=== PATIENT | male | born 1990 | race American Indian/Alaskan Native ===

== ENCOUNTER 2020-03-20 10:14 | Day surgery (SDC) | payer BC ==
[~2020-03-20 10:14] MED LIST: SODIUM CHLORIDE 0.9% 1000 ML 1,000 ML IV SCH
[2020-03-20] MEDS ORDERED: SODIUM CHLORIDE 0.9% 1000 ML 1,000 ML ONE (12:25)
[2020-03-20] MEDS ORDERED: LIDOCAINE MPF (2%) 20 MG/1 ML VIAL 5 ML ONE (12:30)
--- NOTE | 2020-03-20 12:40 | Anesthesia Day of Surgery ---
Anesthesia Day of Surgery - Day of Surgery Patient Examined: Yes Patient H&P Reviewed: Yes Patient is NPO: Yes
--- NOTE | 2020-03-20 12:40 | Anesthesia Consultation ---
Anesthesia Consult and Med Hx Date of service: 03/20/20 - Airway Anesthetic Teeth Evaluation: Good ROM Head & Neck: Adequate Mental/Hyoid Distance: Adequate Mallampati Class: Class II Intubation Access Assessment: Probably Good - Pulmonary Exam CTA: Yes - Cardiac Exam Cardiac Exam: RRR - Pre-Operative Health Status ASA Pre-Surgery Classification: ASA2 Proposed Anesthetic Plan: MAC - Pulmonary Hx Smoking: Yes Hx Respiratory Symptoms: No - Cardiovascular System Hx Hypertension: No - Central Nervous System CVA: No - Gastrointestinal Hx Gastroesophageal Reflux Disease: Yes - Endocrine Hx Renal Disease: No Hx Liver Disease: No Hx Insulin Dependent Diabetes: No Hx Non-Insulin Dependent Diabetes: No Hx Thyroid Disease: No - Other Systems Hx Obesity: No
[2020-03-20] MEDS ORDERED: propofoL 200 MG/20 ML VIAL IV ONE ×2 (14:01→14:02)
--- NOTE | 2020-03-20 14:25 | Procedure Note ---
Date of procedure: 03/20/20 Pre-op diagnosis: Dyspepsia Post-op diagnosis: other (Mild to Moderate,Distal Erosive Esophagitis/ Gastritis/ R/O Celiac Disease (No Peptic Ulcer disease noted)) Procedure: EGD with Biopsy Anesthesia: MAC Surgeon: JUDI LÓPEZ Estimated blood loss: minimal Pathology: list Specimen disposition: to lab Condition: stable Disposition: same day (Treat with PPI and Baclofen, encourage use of OYC Probiotic (as directed. Avoid aspirin and NSAID for 4 days; otherwise resume home medecation. Avoid alcohol and tobacco products and follow up in 1 to 2 weeks ([phone]).)
--- NOTE | 2020-03-20 15:02 | Operative Report ---
PROCEDURE: Esophagogastroduodenoscopy with biopsy. INDICATIONS: This is a 29-year-old otherwise healthy -[place] gentleman originally from [place] in the [facility] who has been having dyspeptic symptoms and nausea, vomiting. EGD was done to make sure there was not any significant upper GI pathology present. The procedure was done after getting informed consent with MAC anesthesia. Instrument was passed through the hypopharynx into the esophagus, which showed some mild to moderate distal erosive esophagitis. Stomach showed some gastritis. No additional pathology was noted on the retroverted view. There was no evidence of any peptic ulcer disease either in the straight or the retroverted view. The pylorus was patent. The duodenum in the first and second portion appeared normal. Biopsy was done from the second part to rule out for possible celiac disease. Additional biopsy was done from the gastric antrum, gastric body and angular incisura to rule out for H. pylori and atrophic gastritis and in addition biopsy was done from the distal esophagus to rule out for erosive esophagitis and to assess for the severity of the erosive esophagitis. ASSESSMENT: Dyspepsia, mild to moderate distal erosive esophagitis, gastritis, rule out celiac disease. No peptic ulcer disease noted. PLAN: Treat the patient with PPI and baclofen to be taken at bedtime. The patient will be encouraged to take probiotics [id number] medication and use it as directed, to avoid aspirin and aspirin-related products. Avoid smoking and alcohol products and to follow up in the office in 1-2 weeks' time. The procedure was done in the GI lab with assistance of the GI lab team, which included nurse RN, Sunshine Mack; margarito Cervantes and with assistance of anesthesia. JOB# [id number] MARILU/ISAMAR
[2020-03-20 15:36] VITALS: BP 108/71
--- NOTE | 2020-03-20 15:58 | Post Anesthesia Evaluation ---
- Post Anesthesia Evaluation Patient Participated: Yes Airway Patent: Yes Stable Respiratory Function: Yes Nausea/Vomiting: No Temp > 96.8F: Yes Pain Manageable: Yes Adequeate Hydration: Yes Anesthesia Complications: No
== END 2020-03-20 10:15 | disposition home or self-care (01) ==
LOC: GIO 10:14
DX: R13.10 Dysphagia, unspecified (principal); R11.2 Nausea with vomiting, unspecified; K21.0 Gastro-esophageal reflux disease with esophagitis; K29.50 Unspecified chronic gastritis without bleeding; B96.81 Helicobacter pylori [H. pylori] as the cause of diseases classified elsewhere; K31.89 Other diseases of stomach and duodenum; K27.9 Peptic ulcer, site unspecified, unspecified as acute or chronic, without hemorrhage or perforation; F17.210 Nicotine dependence, cigarettes, uncomplicated; Z79.899 Other long term (current) drug therapy
CPT/HCPCS: 43239; 88305; 88342; J2704; J7030

== ENCOUNTER 2020-04-16 06:36 | Emergency (ER) | payer BC ==
[2020-04-16 07:42] LABS: Basophils % (Auto) 0.4 % (0.0-1.8); Eosinophils % (Auto) 0.4 % (0.0-4.3); Hematocrit 46.7 % (35.5-45.6); Hemoglobin 16.1 gm/dl (11.8-15.2); Lymphocytes # (Auto) 1.2 K/mm3 (1.2-5.4); Lymphocytes % (Auto) 12.4 % (13.4-35.0); Mean Corpuscular HGB Conc 35 % (32-34); Mean Corpuscular Volume 93 fl (84-94); Monocytes # (Auto) 0.4 K/mm3 (0.0-0.8); Monocytes % (Auto) 3.9 % (0.0-7.3); Platelet Count 261 K/mm3 (140-440); Red Blood Count 5.03 M/mm3 (3.65-5.03); Red Cell Distribution Width 12.9 % (13.2-15.2)
[2020-04-16 07:52] LABS: Alanine Aminotransferase 8 units/L (7-56); Albumin 4.8 g/dL (3.9-5); BUN/Creatinine Ratio 8; Blood Urea Nitrogen 8 mg/dL (9-20); Calcium 9.9 mg/dL (8.4-10.2); Hemolysis Index 7
[2020-04-16] MEDS ORDERED: FAMOTIDINE 20 MG/2 ML INJ IV ONE (08:19)
[2020-04-16] MEDS ORDERED: LACTATED RINGERS 1,000 ML IV ONE (08:19)
[2020-04-16] MEDS ORDERED: METOCLOPRAMIDE 10 MG/2 ML INJ IV ONE (08:19)
[2020-04-16] MEDS ORDERED: SUCRALFATE 1 GM/10 ML ORAL LIQD PO ONE (08:19)
--- NOTE | 2020-04-16 08:21 | Emergency Department Report ---
ED General Adult HPI - General Chief complaint: Abdominal Pain Stated complaint: ABD PAIN PUI?: No Time Seen by Provider: 04/16/20 07:55 Source: patient, RN notes reviewed, old records reviewed Mode of arrival: Ambulatory Limitations: No Limitations - History of Present Illness Initial comments: The patient is a 29-year-old gentleman. He is not known to myself previously. Contrary to what is documented in triage, he did not have an exploratory laparotomy or laparoscopy, but rather, recently had an EGD performed at this [facility], which suggested peptic ulcer disease, and possible gastritis. He was discharged with Protonix and baclofen. He is a chronic cannabis user. He presents with acute on chronic intermittent diffuse abdominal cramping, nausea and vomiting. These episodes are intermittent, abdominal cramping is diffuse. He does not have significant relief with taking hot showers. Denies headache, neck pain, chest pain, testicular pain, irritative and obstructive urinary symptoms. He denies focal extremity weakness and or numbness. Symptoms do not have exacerbating or relieving factors that he is aware of. This particular episode has been going on for a few days -: Gradual, days(s), month(s), year(s) Location: abdomen Radiation: non-radiation Quality: aching Consistency: intermittent Improves with: none Worsens with: none - Related Data Previous Rx's Medication Instructions Recorded Last Taken Type Pantoprazole [Protonix] 40 mg PO QDAY 30 Days #30 tablet 03/20/20 Unknown Rx Acetaminophen [Non-Aspirin Extra 500 mg PO Q6HR PRN #30 tablet 04/16/20 Unknown Rx Strength] Sindy Root [Sindy] 250 mg PO QID PRN #30 capsule 04/16/20 Unknown Rx Metoclopramide [Reglan] 10 mg PO QID PRN #30 tablet 04/16/20 Unknown Rx diphenhydrAMINE [Benadryl] 50 mg PO Q8HR PRN #20 capsule 04/16/20 Unknown Rx Allergies Allergy/AdvReac Type Severity Reaction Status Date / Time No Known Allergies Allergy Unverified 03/18/20 12:52 ED Review of Systems ROS: Stated complaint: ABD PAIN Other details as noted in HPI Constitutional: malaise, weakness. denies: fever Eyes: denies: eye discharge ENT: denies: epistaxis Respiratory: denies: cough Cardiovascular: denies: chest pain Gastrointestinal: abdominal pain, nausea, vomiting. denies: hematemesis, melena, hematochezia Genitourinary: denies: dysuria, testicular pain Musculoskeletal: denies: back pain Neurological: weakness Psychiatric: anxiety Hematological/Lymphatic: denies: easy bleeding ED Past Medical Hx - Past Medical History Previous Medical History?: Yes Hx Hypertension: No Hx GERD: Yes Hx Liver Disease: No Hx Renal Disease: No - Surgical History Past Surgical History?: No - Social History Smoking Status: Never Smoker Substance Use Type: None - Medications Home Medications: Home Medications Medication Instructions Recorded Confirmed Last Taken Type Pantoprazole [Protonix] 40 mg PO QDAY 30 Days #30 tablet 03/20/20 Unknown Rx Acetaminophen [Non-Aspirin Extra 500 mg PO Q6HR PRN #30 tablet 04/16/20 Unknown Rx Strength] Sindy Root [Sindy] 250 mg PO QID PRN #30 capsule 04/16/20 Unknown Rx Metoclopramide [Reglan] 10 mg PO QID PRN #30 tablet 04/16/20 Unknown Rx diphenhydrAMINE [Benadryl] 50 mg PO Q8HR PRN #20 capsule 04/16/20 Unknown Rx ED Physical Exam - General Limitations: No Limitations General appearance: alert, anxious, in distress - Head Head exam: Present: atraumatic, normocephalic - Eye Eye exam: Present: normal appearance, EOMI. Absent: nystagmus - ENT ENT exam: Present: normal exam, normal orophraynx, mucous membranes moist, normal external ear exam - Neck Neck exam: Present: normal inspection, full ROM. Absent: tenderness, meningismus - Respiratory Respiratory exam: Present: normal lung sounds bilaterally. Absent: respiratory distress - Cardiovascular Cardiovascular Exam: Present: regular rate, normal rhythm, normal heart sounds. Absent: bradycardia, tachycardia, irregular rhythm, systolic murmur, diastolic murmur, rubs, gallop - GI/Abdominal GI/Abdominal exam: Present: soft, normal bowel sounds. Absent: distended, tenderness, guarding, rebound, rigid - Rectal Rectal exam: Present: deferred - Extremities Exam Extremities exam: Present: normal inspection, full ROM, other (2+ pulses noted in the bilateral upper and lower extremities. There is no palpable cord. negative Homans sign. Muscular compartments are soft. The pelvis is stable.). Absent: pedal edema, calf tenderness - Back Exam Back exam: Present: normal inspection, full ROM. Absent: tenderness, CVA tenderness (R), CVA tenderness (L), paraspinal tenderness, vertebral tenderness - Neurological Exam Neurological exam: Present: alert, other (No facial droop. Tongue midline. Extraocular movements intact bilaterally. Facial sensation intact to light touch in V1, V2, V3 distribution bilaterally. 5 and a 5 strength in 4 extremities. Sensation intact to light touch in 4 extremities.). Absent: motor sensory deficit - Psychiatric Psychiatric exam: Present: anxious - Skin Skin exam: Present: warm, dry, intact, normal color. Absent: rash ED Course Vital Signs 04/16/20 04/16/20 04/16/20 06:48 08:30 08:46 Temperature 99.7 F H Pulse Rate 77 60 Respiratory 18 13 Rate Blood Pressure 131/86 147/94 Blood Pressure [Left] O2 Sat by Pulse 98 99 99 Oximetry 04/16/20 04/16/20 04/16/20 09:00 09:16 09:30 Temperature Pulse Rate 65 59 L 65 Respiratory 11 L 7 L 17 Rate Blood Pressure 147/94 147/94 147/94 Blood Pressure [Left] O2 Sat by Pulse 98 96 98 Oximetry 04/16/20 04/16/20 04/16/20 10:02 10:16 10:23 Temperature Pulse Rate 90 85 Respiratory 23 20 Rate Blood Pressure 147/94 147/94 Blood Pressure 147/94 [Left] O2 Sat by Pulse 97 94 96 Oximetry 04/16/20 10:30 Temperature Pulse Rate 89 Respiratory 19 Rate Blood Pressure 147/94 Blood Pressure [Left] O2 Sat by Pulse 96 Oximetry - Reevaluation(s) Reevaluation #1: 04/16/20 08:24 Differential diagnosis, including but not limited to: Cyclic vomiting syndrome, cannabinoid hyperemesis syndrome, hiatal hernia, GERD, gastritis, esophagitis, celiac disease Assessment and plan: 29-year-old gentleman with intermittent cyclic vomiting syndrome, suspect cyclic vomiting syndrome versus cannabinoid hyperemesis syndrome. Recent endoscopy is reviewed and appreciated. Patient is afebrile with reassuring vital signs, with a soft benign abdomen, without rebound, guarding or peritoneal signs during distracted examination. Leading diagnosis is most likely cannabinoid hyperemesis syndrome versus cyclic vomiting syndrome. We will treat his symptoms, initiate fluid therapy, and obtain EKG. If no relief with conservative therapy, and EKG unremarkable, will initiate therapy with haloperidol. No active vomiting at this time, given soft benign abdomen, cyclic and recurrent nature of symptoms, do not see indication for advanced CT imaging at this time. Patient counseled extensively, for 7 minutes to discontinue cannabis cons umption. Reevaluation #2: 04/16/20 09:42 Patient still vomiting. Haloperidol, Benadryl ordered. CT scan abdomen pelvis ordered. Reevaluation #3: 04/16/20 11:02 No active vomiting at this time. Patient resting comfortably in his stretcher, and in no acute distress. Belly soft on repeat examination. CT scan of the abdomen pelvis negative for acute pathology. This is most likely cannabinoid hyperemesis syndrome. He can follow-up with his outpatient ceo and founder ED Medical Decision Making - Lab Data Result diagrams: 04/16/20 07:04 04/16/20 07:04 Vital Signs 04/16/20 06:48 Temperature 99.7 F H Pulse Rate 77 Respiratory 18 Rate Blood Pressure 131/86 O2 Sat by Pulse 98 Oximetry - EKG Data -: EKG Interpreted by Nm EKG shows normal: sinus rhythm Rate: normal - EKG Data When compared to previous EKG there are: previous EKG unavailable 04/16/20 08:48 Sinus rhythm, 61 bpm, left axis deviation, intervals within normal limits, high left ventricular voltage, early repolarization. Abnormal EKG. Not a STEMI. - Radiology Data Radiology results: report reviewed, image reviewed Critical care attestation.: If time is entered above; I have spent that time in minutes in the direct care of this critically ill patient, excluding procedure time. ED Disposition Clinical Impression: Acute abdominal pain, Nausea and vomiting, Cannabis dependence Disposition: DC-01 TO HOME OR SELFCARE Is pt being admited?: No Does the pt Need Aspirin: No Condition: Stable Instructions: Cannabis Abuse (ED) Additional Instructions: Do not take metformin medication for the next 2 days, if patient takes this medication. Patient may continue Protonix/pantoprazole, and may discontinue baclofen. Avoid consumption of Motrin, ibuprofen, Naprosyn, Aleve, heavy and spicy foods. Avoid consumption of alcohol. Patient most likely has cannabinoid hyperemesis syndrome. Treatment is to discontinue cannabis/marijuana consumption and exposure. It may take a few weeks to improve. Take the prescribed medications as needed and directed. Patient may also experience relief by taking a hot bath and hot shower, or, by purchasing [id number] hot sauce from any food and/or supermarket, such as Tabasco, and applying it to the anterior abdominal wall, and codeine liberally as needed for pain. Please follow-up with your ceo and founder within the next 2 weeks. Please return to the emergency room right away with new pain, worsening pain, migration of pain, projectile vomiting, change in mental status, confusion, inability to tolerate liquid feeds, new, worsened or different symptoms not present on the initial emergency room evaluation. Referrals: JUDI LÓPEZ MD [Staff Physician] - 7-10 days
[2020-04-16] MEDS ORDERED: HALOPERIDOL LACTATE 5 MG/1 ML INJ IM STA (09:41)
[2020-04-16] MEDS ORDERED: diphenhydrAMINE 50 MG/ML VIAL IV ONE (09:41)
--- NOTE | 2020-04-16 10:34 | Cat Scan Report ---
CT ABDOMEN AND PELVIS WITH CONTRAST INDICATION / CLINICAL INFORMATION: acute abd pain n/v. TECHNIQUE: Axial CT images were obtained through the abdomen and pelvis after IV contrast. All CT scans at this location are performed using CT dose reduction for ALARA by means of automated exposure control. COMPARISON: None available. FINDINGS: LOWER CHEST: No significant abnormality. LIVER: No significant abnormality. Focal fatty infiltration near the falciform ligament. GALLBLADDER: No significant abnormality. BILE DUCTS: No significant abnormality. PANCREAS: No significant abnormality. SPLEEN: No significant abnormality. ADRENALS: No significant abnormality. RIGHT KIDNEY / URETER: No significant abnormality. LEFT KIDNEY / URETER: No significant abnormality. STOMACH / SMALL BOWEL: No significant abnormality. COLON: No significant abnormality. APPENDIX: No significant abnormality. PERITONEUM: No free fluid. No free air. No fluid collection. LYMPH NODES: No significant adenopathy. AORTA / ARTERIES: No significant abnormality. IVC / VEINS: No significant abnormality. URINARY BLADDER: No significant abnormality. REPRODUCTIVE ORGANS: No significant abnormality. ADDITIONAL FINDINGS: None. SKELETAL SYSTEM: There is deformity of the left superior and inferior pubic rami likely from remote t rauma. IMPRESSION: 1. No acute abdominopelvic abnormality. 2. Deformity of the left bony pelvis is likely related to remote trauma. Signer Name: Michael Horn MD Signed: 04/16/2020 10:30 AM Workstation Name: [id number]
[2020-04-16 13:47] VITALS: BP 99/67
== END 2020-04-16 13:54 | disposition home or self-care (01) ==
LOC: ED 06:36
DX: R10.84 Generalized abdominal pain (principal); R11.2 Nausea with vomiting, unspecified; F12.229 Cannabis dependence with intoxication, unspecified
CPT/HCPCS: 36415; 74177; 80053; 82550; 83735; 85025; 93005; 96361; 96372; 96374; 96375; 99284; J1200; J1630; J2765; J7120; Q9967

== ENCOUNTER 2021-08-27 19:47 | Emergency (ER) | payer BC ==
[2021-08-27 19:58] VITALS: BP 144/99
[2021-08-27 20:37] LABS: Hematocrit 48.6 % (35.5-45.6); Hemoglobin 16.7 gm/dl (11.8-15.2); Mean Corpuscular HGB Conc 34 % (32-34); Mean Corpuscular Volume 91 fl (84-94); Platelet Count 277 K/mm3 (140-440); Red Blood Count 5.33 M/mm3 (3.65-5.03); Red Cell Distribution Width 12.1 % (13.2-15.2)
[2021-08-27 20:58] LABS: Alanine Aminotransferase 6 units/L (7-56); BUN/Creatinine Ratio 12; Blood Urea Nitrogen 13 mg/dL (9-20); Calcium 10.4 mg/dL (8.4-10.2); Hemolysis Index 10
[2021-08-27 21:23] LABS: Bilirubin,Urine NEG (Negative); Blood,Urine NEG (Negative); Color,Urine Amber (Yellow); Mucus,Urine 2+ /HPF
[2021-08-27 22:01] LABS: RBC Morphology Normal; Total Cells Counted 100
[2021-08-27] MEDS ORDERED: METOCLOPRAMIDE 10 MG/2 ML INJ IV ONE (23:01)
[2021-08-27] MEDS ORDERED: MORPHINE 4 MG/1 ML INJ IV ONE (23:01)
[2021-08-27] MEDS ORDERED: diphenhydrAMINE 50 MG/ML VIAL IV ONE (23:01)
[2021-08-27] MEDS ORDERED: FAMOTIDINE 20 MG/2 ML INJ IV ONE (23:01)
[2021-08-27] MEDS ORDERED: SODIUM CHLORIDE 0.9% 1000 ML 1,000 ML IV ONE (23:01)
--- NOTE | 2021-08-28 01:22 | Cat Scan Report ---
CT ABDOMEN AND PELVIS WITH CONTRAST INDICATION / CLINICAL INFORMATION: abdominal pain, N/V. TECHNIQUE: Axial CT images were obtained through the abdomen and pelvis after 100 cc of Omnipaque [address] scans at this location are performed using CT dose reduction for ALARA by means of automated exposure control. COMPARISON: 04/16/2020 FINDINGS: LOWER CHEST: No significant abnormality. AORTA / ARTERIES: No significant abnormality. IVC / VEINS: No significant abnormality. LYMPH NODES: No significant adenopathy. COLON: No significant abnormality. APPENDIX: No significant abnormality. STOMACH / SMALL BOWEL: No significant abnormality. PERITONEUM: No free fluid. No free air. No fluid collection. LIVER: Redemonstrated focal fatty infiltration, otherwise no significant lesion within the liver. GALLBLADDER: No significant abnormality. BILE DUCTS: No significant abnormality. PANCREAS: No significant abnormality. SPLEEN: No significant abnormality. ADRENALS: No significant abnormality. RIGHT KIDNEY / URETER: No significant abnormality. LEFT KIDNEY / URETER: No significant abnormality. URINARY BLADDER: No significant abnormality. REPRODUCTIVE ORGANS: No significant abnormality. SKELETAL SYSTEM: Unchanged deformity of the left superior-inferior pubic rami. ADDITIONAL FINDINGS: None. IMPRESSION: 1. No acute intra-abdominal or intrapelvic pathology. Signer Name: Familia Burroughs DO Signed: 08/28/2021 1:18 AM Workstation Name: [id number]
--- NOTE | 2021-08-28 03:03 | Emergency Department Report ---
ED N/V/D HPI - General Chief complaint: Nausea/Vomiting/Diarrhea Stated complaint: GERD Source: patient Mode of arrival: Ambulatory Limitations: No Limitations - History of Present Illness Initial comments: Patient is a 30-year-old -[place] male with a history of chronic gastroenteritis who presented to the ED with complaint of acute onset persistent intractable nausea and vomiting for the last 2 weeks. Patient also complains of diffuse abdominal pain. Patient states that he has not been able to keep anything down including fluids for the last 1 week because of intractable nausea and vomiting and diffuse abdominal pain. Patient admits to smoking marijuana regularly the last time which was 2 weeks ago. Patient denies fever, chills, diarrhea, dizziness, chest pain, shortness of breath, sore throat, cough, headache, lightheadedness, nasal and sinus congestion, hematemesis, hematochezia, change in vision or back pain, dysuria, urinary frequency and urgency and testicular pain. MD complaint: nausea, vomiting, abdominal pain -: Sudden, week(s) (2) Description of Vomiting: food contents, watery, bilious Associated Abdominal Pain: Yes (Diffuse) Location: diffuse Radiation: none Severity: severe Pain Scale: 7 Quality: cramping, dull Consistency: intermittent Improves with: none Worsens with: eating, vomiting Context: possible food poisoning, other (Chronic cannabis cyclic vomiting) Associated Symptoms: denies other symptoms, loss of appetite, malaise, nausea/vomiting. denies: myalgias, chest pain, cough, diaphoresis, fever/chills, headaches, rash, dysuria, shortness of breath, syncope, weakness - Related Data Previous Rx's Medication Instructions Recorded Last Taken Type Pantoprazole [Protonix] 40 mg PO QDAY 30 Days #30 tablet 03/20/20 Unknown Rx Acetaminophen [Non-Aspirin Extra 500 mg PO Q6HR PRN #30 tablet 04/16/20 Unknown Rx Strength] Sindy Root [Sindy] 250 mg PO QID PRN #30 capsule 04/16/20 Unknown Rx Metoclopramide [Reglan] 10 mg PO QID PRN #30 tablet 04/16/20 Unknown Rx diphenhydrAMINE [Benadryl] 50 mg PO Q8HR PRN #20 capsule 04/16/20 Unknown Rx Dicyclomine [Bentyl] 20 mg PO Q6H PRN #30 tablet 08/28/21 Unknown Rx Famotidine [Pepcid] 20 mg PO BID #60 tablet 08/28/21 Unknown Rx Ondansetron [Zofran Odt] 4 mg PO Q6HR PRN #20 tab.rapdis 08/28/21 Unknown Rx Promethazine HCl [Phenergan SUPPOS] 25 mg RC Q6H PRN #20 supp.rect 08/28/21 Unknown Rx Allergies Allergy/AdvReac Type Severity Reaction Status Date / Time No Known Allergies Allergy Unverified 03/18/20 12:52 ED Review of Systems ROS: Stated complaint: GERD Other details as noted in HPI Constitutional: denies: chills, fever Eyes: denies: eye pain, eye discharge, vision change ENT: denies: ear pain, throat pain Respiratory: denies: cough, shortness of breath, wheezing Cardiovascular: denies: chest pain, palpitations Endocrine: no symptoms reported Gastrointestinal: abdominal pain, nausea, vomiting. denies: diarrhea Genitourinary: denies: urgency, dysuria Musculoskeletal: denies: back pain, joint swelling, arthralgia Skin: denies: rash, lesions Neurological: denies: headache, weakness, paresthesias Psychiatric: denies: anxiety, depression Hematological/Lymphatic: denies: easy bleeding, easy bruising ED Past Medical Hx - Past Medical History Previous Medical History?: Yes Hx Hypertension: No Hx GERD: Yes Hx Liver Disease: No Hx Renal Disease: No - Surgical History Past Surgical History?: No - Social History Smoking Status: Never Smoker Substance Use Type: None - Medications Home Medications: Home Medications Medication Instructions Recorded Confirmed Last Taken Type Pantoprazole [Protonix] 40 mg PO QDAY 30 Days #30 tablet 03/20/20 Unknown Rx Acetaminophen [Non-Aspirin Extra 500 mg PO Q6HR PRN #30 tablet 04/16/20 Unknown Rx Strength] Sindy Root [Sindy] 250 mg PO QID PRN #30 capsule 04/16/20 Unknown Rx Metoclopramide [Reglan] 10 mg PO QID PRN #30 tablet 04/16/20 Unknown Rx diphenhydrAMINE [Benadryl] 50 mg PO Q8HR PRN #20 capsule 04/16/20 Unknown Rx Dicyclomine [Bentyl] 20 mg PO Q6H PRN #30 tablet 08/28/21 Unknown Rx Famotidine [Pepcid] 20 mg PO BID #60 tablet 08/28/21 Unknown Rx Ondansetron [Zofran Odt] 4 mg PO Q6HR PRN #20 tab.rapdis 08/28/21 Unknown Rx Promethazine HCl [Phenergan SUPPOS] 25 mg RC Q6H PRN #20 supp.rect 08/28/21 Unknown Rx ED Physical Exam - General Limitations: No Limitations General appearance: alert, in no apparent distress - Head Head exam: Present: atraumatic, normocephalic, normal inspection - Eye Eye exam: Present: normal appearance, PERRL, EOMI Pupils: Present: normal accommodation - ENT ENT exam: Present: normal exam, normal orophraynx, mucous membranes moist, TM's normal bilaterally, normal external ear exam - Neck Neck exam: Present: normal inspection, full ROM. Absent: tenderness - Respiratory Respiratory exam: Present: normal lung sounds bilaterally. Absent: respiratory distress, wheezes, rales, rhonchi, chest wall tenderness, accessory muscle use, decreased breath sounds - Cardiovascular Cardiovascular Exam: Present: normal rhythm, tachycardia, normal heart sounds. Absent: systolic murmur, diastolic murmur, rubs, gallop - GI/Abdominal GI/Abdominal exam: Present: soft, tenderness (Palpable mild diffuse abdominal tenderness), normal bowel sounds. Absent: guarding, rebound - Extremities Exam Extremities exam: Present: normal inspection, full ROM, normal capillary refill - Back Exam Back exam: Present: normal inspection, full ROM. Absent: tenderness, CVA tenderness (R), CVA tenderness (L), muscle spasm, paraspinal tenderness, vertebral tenderness - Neurological Exam Neurological exam: Present: alert, oriented X3, CN II-XII intact, normal gait, reflexes normal - Psychiatric Psychiatric exam: Present: normal affect, normal mood, anxious - Skin Skin exam: Present: warm, dry, intact, normal color. Absent: rash ED Course Vital Signs 08/27/21 19:57 Temperature 98.7 F Pulse Rate 105 H Respiratory 20 Rate Blood Pressure 144/99 [Right] O2 Sat by Pulse 99 Oximetry ED Medical Decision Making - Lab Data Result diagrams: 08/27/21 20:25 08/27/21 20:25 - Radiology Data Radiology results: report reviewed, image reviewed [facility] [address] [place] [address] Cat Scan Report Signed Patient: SARAHY WYNN MR#: [id number] : 1990 Acct:[id number] Age/Sex: 30 / M ADM Date: 08/27/21 Loc: ED Attending Dr: Ordering Physician: MONISHA CISNEROS Date of Service: 08/27/21 Procedure(s): CT abdomen pelvis w con Accession Number(s): [id number] cc: MONISHA CISNEROS CT ABDOMEN AND PELVIS WITH CONTRAST INDICATION / CLINICAL INFORMATION: abdominal pain, N/V. TECHNIQUE: Axial CT images were obtained through the abdomen and pelvis after 100 cc of Omnipaque [address] scans at this location are performed using CT dose reduction for ALARA by means of automated exposure control. COMPARISON: 04/16/2020 FINDINGS: LOWER CHEST: No significant abnormality. AORTA / ARTERIES: No significant abnormality. IVC / VEINS: No significant abnormality. LYMPH NODES: No significant adenopathy. COLON: No significant abnormality. APPENDIX: No significant abnormality. STOMACH / SMALL BOWEL: No significant abnormality. PERITONEUM: No free fluid. No free air. No fluid collection. LIVER: Redemonstrated focal fatty infiltration, otherwise no significant lesion within the liver. GALLBLADDER: No significant abnormality. BILE DUCTS: No significant abnormality. PANCREAS: No significant abnormality. SPLEEN: No significant abnormality. ADRENALS: No significant abnormality. RIGHT KIDNEY / URETER: No significant abnormality. LEFT KIDNEY / URETER: No significant abnormality. URINARY BLADDER: No significant abnormality. REPRODUCTIVE ORGANS: No significant abnormality. SKELETAL SYSTEM: Unchanged deformity of the left superior-inferior pubic rami. ADDITIONAL FINDINGS: None. IMPRESSION: 1. No acute intra-abdominal or intrapelvic pathology. Signer Name: Familia Chambers DO Signed: 08/28/2021 1:18 AM Workstation Name: [id number] Transcribed By: PADILLA Dictated By: FAMILIA CHAMBERS DO Electronically Authenticated By: FAMILIA CHAMBESR DO Signed Date/Time: 08/28/21117 DD/ 2 TD/TT: Print - Medical Decision Making This is a 30-year-old -[place] male with a history of chronic gastroenteritis who presented to the ED with complaint of acute onset persistent intractable nausea and vomiting for the last 2 weeks. Patient also complains of diffuse abdominal pain. Patient states that he has not been able to keep anything down including fluids for the last 1 week because of intractable nausea and vomiting and diffuse abdominal pain. Patient admits to smoking marijuana regularly the last time which was 2 weeks ago. In the ED, patient is alert and oriented x3 and is not in any distress. Patient was treated in the ED with antiemetics, antacids, pain medications and normal saline 1 L IV bolus x1. Lab test results were reviewed and showed acute leukocytosis of 13,700. The rest of the lab test results were nonactionable. Abdomen pelvis CT scan with contrast showed no acute abnormalities. On reevaluation, patient's nausea and vomiting resolved as well as pain. Patient passed oral fluid challenge in the ED. Patient was therefore discharged home on antiemetics, antispasmodics, and antacids. Patient was advised to maintain a clear liquid diet for 12 to 24 hours, patient was also advised to ensure that he does not smoke cannabis as this may be the cause of his cyclic vomiting syndrome. Patient was advised to follow-up with his primary care physician in 5 to 7 days for reevaluation or return to the ED immediately if symptoms get worse. - Differential Diagnosis Gastroenteritis; GERD; cyclic vomiting; dehydration; cannabis hyperemesis Critical care attestation.: If time is entered above; I have spent that time in minutes in the direct care of this critically ill patient, excluding procedure time. ED Disposition Clinical Impression: Intractable cyclical vomiting syndrome, Gastroenteritis, Cannabis hyperemesis syndrome concurrent with and due to cannabis abuse GERD (gastroesophageal reflux disease) Qualifiers: Esophagitis presence: esophagitis presence not specified Qualified Code(s): K21.9 - Gastro-esophageal reflux disease without esophagitis Disposition: 01 HOME / SELF CARE / HOMELESS Is pt being admited?: No Does the pt Need Aspirin: No Condition: Stable Instructions: Viral Gastroenteritis, Adult, [id number], Nausea and Vomiting, Adult, [id number], Gastroesophageal Reflux Disease, Adult, [id number], Cannabinoid Hyperemesis Syndrome, Cyclic Vomiting Syndrome, Adult Additional Instructions: Maintain a clear liquid diet for 12 to 24 hours, take medication as needed for nausea and vomiting, acid reflux and pain. Follow-up with your primary care physician in 7 to 10 days for reevaluation. Ensure that you do not smoke marijuana as this may be the cause of your cyclic vomiting syndrome. Return to the ED immediately if symptoms get worse. Prescriptions: Dicyclomine [Bentyl] 20 mg PO Q6H PRN #30 tablet PRN Reason: Abdominal pain Famotidine [Pepcid] 20 mg PO BID #60 tablet Promethazine HCl [Phenergan SUPPOS] 25 mg RC Q6H PRN #20 supp.rect PRN Reason: Nausea And Vomiting Ondansetron [Zofran Odt] 4 mg PO Q6HR PRN #20 tab.rapdis PRN Reason: Nausea And Vomiting Referrals: BENJAMIN MACIAS MD [Staff Physician] - 3-5 Days Time of Disposition: 03:09 Print Language: EAST TIMOR[place]
== END 2021-08-28 04:00 | disposition home or self-care (01) ==
LOC: ED 19:47
DX: K52.9 Noninfective gastroenteritis and colitis, unspecified (principal); F12.188 Cannabis abuse with other cannabis-induced disorder; K21.9 Gastro-esophageal reflux disease without esophagitis
CPT/HCPCS: 36415; 74177; 80053; 81001; 85007; 85025; 96361; 96374; 96375; 99284; J1200; J2270; J2765; J3490; J7030; Q9967; Q0162

== ENCOUNTER 2021-08-28 18:14 | Emergency (ER) | payer BC ==
[2021-08-28] MEDS ORDERED: PANTOPRAZOLE 40 MG INJ IV ONE (18:45)
[2021-08-28] MEDS ORDERED: diphenhydrAMINE 50 MG/ML VIAL IV ONE (18:45)
[2021-08-28] MEDS ORDERED: METOCLOPRAMIDE 10 MG/2 ML INJ IV ONE (18:45)
[2021-08-28] MEDS ORDERED: SODIUM CHLORIDE 0.9% 1000 ML 1,000 ML IV ONE (18:45)
--- NOTE | 2021-08-28 19:17 | Emergency Department Report ---
ED General Adult HPI - General Chief complaint: Nausea/Vomiting/Diarrhea Stated complaint: n/v abd pain Time Seen by Provider: 08/28/21 18:38 Source: EMS Mode of arrival: Wheelchair Limitations: No Limitations - History of Present Illness Initial comments: Patient is a 30-year-old male presents emergency room complaints of nausea and vomiting that reoccurred a few hours ago. Patient states he has associated generalized abdominal soreness. Patient was evaluated in the emergency department and discharged earlier this morning and had a normal CT abdomen pelvis with IV contrast and reports that he was feeling much better but then his symptoms recurred several hours later. He states he was not able to hot die picker his prescriptions as it is a holiday and therefore the pharmacies are closed. Patient states that he has had similar issues over the last 10 years. He states he had a endoscopy by Dr. Jason and states he was diagnosed with gastritis. He reports he has an upcoming appointment with a new GI specialist in September 2021. He denies any fever, diarrhea, hematochezia, melena, hematemesis, urinary symptoms. He states he is able to have normal bowel movements. No allergies to medications. He endorses marijuana use. He states he was advised not to smoke marijuana, drink alcohol, or use tobacco by previous GI specialist. Severity scale (0 -10): 1 - Related Data Previous Rx's Medication Instructions Recorded Last Taken Type Pantoprazole [Protonix] 40 mg PO QDAY 30 Days #30 tablet 03/20/20 Unknown Rx Acetaminophen [Non-Aspirin Extra 500 mg PO Q6HR PRN #30 tablet 04/16/20 Unknown Rx Strength] Sindy Root [Sindy] 250 mg PO QID PRN #30 capsule 04/16/20 Unknown Rx Metoclopramide [Reglan] 10 mg PO QID PRN #30 tablet 04/16/20 Unknown Rx diphenhydrAMINE [Benadryl] 50 mg PO Q8HR PRN #20 capsule 04/16/20 Unknown Rx Dicyclomine [Bentyl] 20 mg PO Q6H PRN #30 tablet 08/28/21 Unknown Rx Famotidine [Pepcid] 20 mg PO BID #60 tablet 08/28/21 Unknown Rx Ondansetron [Zofran Odt] 4 mg PO Q6HR PRN #20 tab.rapdis 08/28/21 Unknown Rx Promethazine HCl [Phenergan SUPPOS] 25 mg RC Q6H PRN #20 supp.rect 08/28/21 Unknown Rx Allergies Allergy/AdvReac Type Severity Reaction Status Date / Time No Known Allergies Allergy Unverified 03/18/20 12:52 ED Review of Systems ROS: Stated complaint: n/v abd pain Other details as noted in HPI Comment: All other systems reviewed and negative ED Past Medical Hx - Past Medical History Hx Hypertension: No Hx GERD: Yes Hx Liver Disease: No Hx Renal Disease: No - Social History Smoking Status: Never Smoker Substance Use Type: None - Medications Home Medications: Home Medications Medication Instructions Recorded Confirmed Last Taken Type Pantoprazole [Protonix] 40 mg PO QDAY 30 Days #30 tablet 03/20/20 Unknown Rx Acetaminophen [Non-Aspirin Extra 500 mg PO Q6HR PRN #30 tablet 04/16/20 Unknown Rx Strength] Sindy Root [Sindy] 250 mg PO QID PRN #30 capsule 04/16/20 Unknown Rx Metoclopramide [Reglan] 10 mg PO QID PRN #30 tablet 04/16/20 Unknown Rx diphenhydrAMINE [Benadryl] 50 mg PO Q8HR PRN #20 capsule 04/16/20 Unknown Rx Dicyclomine [Bentyl] 20 mg PO Q6H PRN #30 tablet 08/28/21 Unknown Rx Famotidine [Pepcid] 20 mg PO BID #60 tablet 08/28/21 Unknown Rx Ondansetron [Zofran Odt] 4 mg PO Q6HR PRN #20 tab.rapdis 08/28/21 Unknown Rx Promethazine HCl [Phenergan SUPPOS] 25 mg RC Q6H PRN #20 supp.rect 08/28/21 Unknown Rx ED Physical Exam - General Limitations: No Limitations General appearance: alert, in no apparent distress - Head Head exam: Present: atraumatic, normocephalic - Eye Eye exam: Present: normal appearance - ENT ENT exam: Present: mucous membranes moist - Respiratory Respiratory exam: Present: normal lung sounds bilaterally. Absent: respiratory distress, wheezes, rales, rhonchi, stridor, chest wall tenderness, accessory muscle use, decreased breath sounds, prolonged expiratory - Cardiovascular Cardiovascular Exam: Present: regular rate, normal rhythm, normal heart sounds. Absent: systolic murmur, diastolic murmur, rubs, gallop - GI/Abdominal GI/Abdominal exam: Present: soft, normal bowel sounds. Absent: distended, tenderness, guarding, rebound, rigid - Neurological Exam Neurological exam: Present: alert, oriented X3 - Psychiatric Psychiatric exam: Present: normal affect, normal mood - Skin Skin exam: Present: warm, dry, intact ED Course Vital Signs 08/28/21 08/28/21 18:16 20:59 Temperature 98.7 F 99.2 F Pulse Rate 113 H 106 H Respiratory 18 20 Rate Blood Pressure 148/100 150/108 [Left] O2 Sat by Pulse 97 97 Oximetry ED Medical Decision Making - Lab Data Result diagrams: 08/28/21 19:05 08/28/21 19:05 Lab Results 08/28/21 08/28/21 Range/Units 19:05 19:05 WBC 10.5 (4.5-11.0) K/mm3 RBC 5.04 H (3.65-5.03) M/mm3 Hgb 15.6 H (11.8-15.2) gm/dl Hct 46.1 H (35.5-45.6) % MCV 92 (84-94) fl MCH 31 (28-32) pg MCHC 34 (32-34) % RDW 12.2 L (13.2-15.2) % Plt Count 241 (140-440) K/mm3 Lymph % (Auto) 6.7 L (13.4-35.0) % [place] % (Auto) 6.7 (0.0-7.3) % Eos % (Auto) 1.1 (0.0-4.3) % Baso % (Auto) 0.4 (0.0-1.8) % Lymph # (Auto) 0.7 L (1.2-5.4) K/mm3 [place] # (Auto) 0.7 (0.0-0.8) K/mm3 Eos # (Auto) 0.1 (0.0-0.4) K/mm3 Baso # (Auto) 0.0 (0.0-0.1) K/mm3 Seg Neutrophils % 85.1 H (40.0-70.0) % Seg Neutrophils # 8.9 H (1.8-7.7) K/mm3 Sodium 135 L (137-145) mmol/L Potassium 3.3 L (3.6-5.0) mmol/L Chloride 93.5 L (98-107) mmol/L Carbon Dioxide 23 (22-30) mmol/L Anion Gap 22 mmol/L BUN 8 L (9-20) mg/dL Creatinine 1.1 (0.8-1.3) mg/dL Estimated GFR > 60 ml/min BUN/Creatinine Ratio 7 % Glucose 111 H (75-100) mg/dL Calcium 9.3 (8.4-10.2) mg/dL Total Bilirubin 0.60 (0.1-1.2) mg/dL AST 12 (5-40) units/L ALT 6 L (7-56) units/L Alkaline Phosphatase 87 (35-129) units/L Total Protein 6.7 (6.3-8.2) g/dL Albumin 4.6 (3.9-5) g/dL Albumin/Globulin Ratio 2.2 % Lipase 33 (13-60) units/L Vital Signs 08/28/21 08/28/21 18:16 20:59 Temperature 98.7 F 99.2 F Pulse Rate 113 H 106 H Respiratory 18 20 Rate Blood Pressure 148/100 150/108 [Left] O2 Sat by Pulse 97 97 Oximetry - Medical Decision Making Patient is a 30-year-old male presents emergency room complaints of nausea and vomiting that reoccurred a few hours ago. Patient states he has associated generalized abdominal soreness. Patient was evaluated in the emergency department and discharged earlier this morning and had a normal CT abdomen pelvis with IV contrast and reports that he was feeling much better but then his symptoms recurred several hours later. He states he was not able to hot die picker his prescriptions as it is a holiday and therefore the pharmacies are closed. Patient states that he has had similar issues over the last 10 years. He states he had a endoscopy by Dr. Jason and states he was diagnosed with gastritis. He reports he has an upcoming appointment with a new GI specialist in September 2021. He denies any fever, diarrhea, hematochezia, melena, hematemesis, urinary symptoms. He states he is able to have normal bowel movements. No allergies to medications. He endorses marijuana use. He states he was advised not to smoke marijuana, drink alcohol, or use tobacco by previous GI specialist. No abdominal tenderness on exam, no guarding, no rebound, no rigidity, no peritoneal signs. Patient's white blood cell count has improved from previous and is now normal. Labs with mild dehydration and hypokalemia. Patient given 1 L IV fluids and K-Dur. Patient given medications in the emergency department with resolution of his symptoms. He was feeling much better and had no further episodes of vomiting. He was able to tolerate p.o. intake. Discussed the importance of GI follow-up and primary care follow-up. Discussed return precautions. Advised patient Please take medication as prescribed during your emergency room visit earlier. Increase your fluid intake. Eat a bland liquid diet so advance your diet as tolerated. Do not drink alcohol, smoke marijuana, smoke tobacco. Follow-up with a primary care doctor for follow-up with a GI doctor return emergency room any new or worse symptoms Critical care attestation.: If time is entered above; I have spent that time in minutes in the direct care of this critically ill patient, excluding procedure time. ED Disposition Clinical Impression: Abdominal cramping, Dehydration, Hypokalemia Nausea & vomiting Qualifiers: Vomiting type: unspecified Qualified Code(s): R11.2 - Nausea with vomiting, unspecified Disposition: HOME / SELF CARE / HOMELESS Is pt being admited?: No Does the pt Need Aspirin: No Condition: Stable Instructions: Nausea and Vomiting, Adult Additional Instructions: Please take medication as prescribed during your emergency room visit earlier. Increase your fluid intake. Eat a bland liquid diet so advance your diet as tolerated. Do not drink alcohol, smoke marijuana, smoke tobacco. Follow-up with a primary care doctor for follow-up with a GI doctor return emergency room any new or worse symptoms Referrals: PRIMARY CARE, [Primary Care Provider] - 3-5 Days your, GI doctor [Other] - 3-5 Days Time of Disposition: 20:17 Print Language: URDU
[2021-08-28 19:49] LABS: Basophils % (Auto) 0.4 % (0.0-1.8); Eosinophils # (Auto) 0.1 K/mm3 (0.0-0.4); Eosinophils % (Auto) 1.1 % (0.0-4.3); Hematocrit 46.1 % (35.5-45.6); Hemoglobin 15.6 gm/dl (11.8-15.2); Lymphocytes # (Auto) 0.7 K/mm3 (1.2-5.4); Lymphocytes % (Auto) 6.7 % (13.4-35.0); Mean Corpuscular HGB Conc 34 % (32-34); Mean Corpuscular Volume 92 fl (84-94); Monocytes # (Auto) 0.7 K/mm3 (0.0-0.8); Monocytes % (Auto) 6.7 % (0.0-7.3); Platelet Count 241 K/mm3 (140-440); Red Blood Count 5.04 M/mm3 (3.65-5.03); Red Cell Distribution Width 12.2 % (13.2-15.2)
[2021-08-28 20:12] LABS: Alanine Aminotransferase 6 units/L (7-56); Albumin 4.6 g/dL (3.9-5); BUN/Creatinine Ratio 7; Blood Urea Nitrogen 8 mg/dL (9-20); Calcium 9.3 mg/dL (8.4-10.2); Hemolysis Index 6
[2021-08-28] MEDS ORDERED: POTASSIUM CHLORIDE ER 20 MEQ TAB PO ONE (20:14)
[2021-08-28 21:00] VITALS: BP 150/108
== END 2021-08-28 20:59 | disposition home or self-care (01) ==
LOC: ED 18:14
DX: R10.84 Generalized abdominal pain (principal); E86.0 Dehydration; E87.6 Hypokalemia; R11.2 Nausea with vomiting, unspecified
CPT/HCPCS: 36415; 80053; 83690; 85025; 96361; 96374; 96375; 99284; C9113; J1200; J2765; J7030; Q0162